=== PATIENT | male | born 1990 | race African-American/Black ===

== ENCOUNTER 2020-09-12 22:22 | Emergency (ER) | payer BC, SELFPAY ==
[2020-09-12] MEDS ORDERED: Mag-Al 1200 mg/1200 mg/30 ML UDCUP ONE (23:23)
[2020-09-12] MEDS ORDERED: Lidocaine Viscous Sol 2% 15 ml UD Cup ONE (23:23)
[2020-09-12 23:52] LABS: #Basophils 0.1 thou/uL (0.0-0.2); #Eosinphils 0.2 thou/uL (0.0-0.7); #Lymphocytes 1.6 thou/uL (1.20-3.40); #Monocytes 0.8 thou/uL (0.11-0.59); #Neutrophils 8.9 thou/uL (1.40-6.50); %Basophils 0.5 % (0.0-1.0); %Eosinophils 1.7 % (0.0-10.0); %Lymphocytes 13.8 % (21.0-51.0); %Monocytes 7.1 % (0.0-10.0); %Neutrophils 76.9 % (42.0-75.0); Hemoglobin 13.5 g/dL (14.0-18.0); Mean Corpuscular HGB CONC 31.8 g/dL (32.0-36.0); Mean Corpuscular Hemoglobin 26.9 pg (27.0-31.0); Mean Corpuscular Volume 84.6 fL (78.0-98.0); Mean Platelet Volume 8.9 fL (7.4-10.4); Platelet Count 223 thou/uL (130-400); Red Blood Cell (RBC) Count 5.01 mill/uL (4.70-6.10); White Blood Cell (WBC) Count 11.6 thou/uL (4.8-10.8)
[2020-09-13 00:14] LABS: ALT (SGPT) 35 U/L (8-55); AST (SGOT) 25 U/L (5-34); Albumin 4.2 g/dL (3.5-5.0); Alkaline Phosphatase 62 U/L (40-110); Anion Gap 15 mmol/L (10-20); BUN (Urea Nitrogen) 11 mg/dL (8.9-20.6); Bilirubin, Total 0.3 mg/dL (0.2-1.2); Calc. Creatinine Clearance 0 mL/min (70-130); Calcium 8.8 mg/dL (7.8-10.44); Carbon Dioxide 24 mmol/L (22-29); Chloride 102 mmol/L (98-107); Globulin 3.3 g/dL (2.4-3.5); Glucose 134 mg/dL (70-105); Potassium 3.3 mmol/L (3.5-5.1); Protein, Total 7.5 g/dL (6.0-8.3); Sodium 138 mmol/L (136-145)
== END 2020-09-13 01:50 | disposition home or self-care (01) ==
LOC: ERS 22:22
DX: R07.89 Other chest pain (principal); R00.2 Palpitations; R11.2 Nausea with vomiting, unspecified; R10.13 Epigastric pain; E66.01 Morbid (severe) obesity due to excess calories; Z68.45 Body mass index [BMI] 70 or greater, adult
CPT/HCPCS: 36415; 71045; 80053; 84484; 85025; 93005

== ENCOUNTER 2021-04-24 16:03 | Outpatient (CLI) | payer SELFPAY ==
[2021-04-25 00:44] LABS: SARS-CoV-2 PCR by NAA Not Detected (NotDetected)
== END 2021-04-24 16:04 | disposition home or self-care (01) ==
LOC: LABBT 16:03
PROVIDERS: ATTEND Internal Medicine
DX: Z01.812 Encounter for preprocedural laboratory examination (principal); R07.9 Chest pain, unspecified; R13.19 Other dysphagia; Z20.822 Contact with and (suspected) exposure to COVID-19
CPT/HCPCS: U0003; U0005

== ENCOUNTER 2021-04-27 07:13 | Day surgery (SDC) | payer OTHER ==
[2021-04-26 09:24] VITALS: BMI 63.1
[2021-04-27] MEDS ORDERED: Lidocaine 1% MPF 2 ML VIAL ONE (08:07)
[2021-04-27] MEDS ORDERED: PROPOFOL 200 MG/20 ML VIAL ONE (10:07)
== END 2021-04-27 11:10 | disposition home or self-care (01) ==
LOC: SDC 07:13
PROVIDERS: ATTEND Internal Medicine
PROC: 0DJ08ZZ Inspection of Upper Intestinal Tract, Via Natural or Artificial Opening Endoscopic (ICD-10-PCS; principal; 2021-04-27)
DX: R13.10 Dysphagia, unspecified (principal); R12 Heartburn; E66.01 Morbid (severe) obesity due to excess calories; Z68.44 Body mass index [BMI] 60.0-69.9, adult; Z91.013 Allergy to seafood
CPT/HCPCS: J2704